=== PATIENT | female | born 1985 | race African-American/Black ===

== ENCOUNTER 2019-05-22 15:50 | Emergency (ER) | payer MEDICAID ==
[~2019-05-22] VITALS: Ht 170.2 cm; Wt 60.0 kg
[2019-05-22] MEDS ORDERED: ACETAMINOPHEN WITH CODEINE 300/30MG TABLET PO ONE (18:45)
[2019-05-22] MEDS ORDERED: IBUPROFEN 400MG TABLET PO ONE (18:45)
[2019-05-22] MEDS ORDERED: ACETAMINOPHEN WITH CODEINE 300/30MG TABLET PO NR (19:30)
[2019-05-22] MEDS ORDERED: IBUPROFEN 400MG TABLET PO NR (19:30)
[2019-05-22 20:04] VITALS: BP 124/84
== END 2019-05-22 20:05 | disposition home or self-care (01) ==
LOC: ER 15:50
DX: K08.89 Other specified disorders of teeth and supporting structures (principal); Z98.818 Other dental procedure status; R03.0 Elevated blood-pressure reading, without diagnosis of hypertension
CPT/HCPCS: 99283

== ENCOUNTER 2024-04-15 17:38 | Inpatient (IN) | payer OTHER ==
[~2024-04-15] VITALS: Ht 165.1 cm; Wt 77.1 kg
[2024-04-15 17:41] VITALS: O2SAT 97
[2024-04-15 18:52] LABS: BASOPHILS % 0.5 % (0.0-2.0); HEMOGLOBIN. 16.7 g/dL (12.0-16.0); LYMPHOCYTES % 13.7 % (20.0-50.0); MEAN CORPUSCULAR HEMOGLOBIN 29.5 pg (28.0-32.0); MEAN CORPUSCULAR HGB CONC 32.2 g/dL (31.0-37.0); MEAN CORPUSCULAR VOLUME 91.7 fL (81.0-99.0); MEAN PLATELET VOLUME 8.9 fl (7.4-10.4); MONOCYTES % 2.6 % (2.0-8.0); NEUTROPHILS % 83.2 % (40.0-76.0); PLATELET 234 x1000/uL (130-400); RED BLOOD CELL COUNT 5.67 mill/uL (4.2-5.4); RED CELL DISTRIBUTION WIDTH 15.9 % (11.6-14.6); WHITE BLOOD COUNT 10.8 x1000/uL (4.5-11.0)
[2024-04-15] MEDS ORDERED: FOLIC ACID 1 MG, THIAMINE HCL 100 MG, MVI, ADULT NO.1 10 ML in DEXTROSE 5% WATER 1,000 ML IV ONE (19:00)
[2024-04-15 19:05] LABS: HCG SCREEN NEGATIVE
[2024-04-15 20:03] LABS: CHLORIDE 119 mEq/L (98-107); POTASSIUM 3.6 mEq/L (3.5-5.1); SODIUM 145 mEq/L (136-145)
[2024-04-15 20:04] LABS: CARBON DIOXIDE 13 mEq/L (21-32)
[2024-04-15] MEDS: LORAZEPAM 2MG/ML INJ IV ONE (20:06)
[2024-04-15] MEDS: SODIUM CHLORIDE 0.9% 1,000 ML IV ONE (20:06)
[2024-04-15 20:09] LABS: CREATININE 0.6 mg/dL (0.6-1.0); UREA NITROGEN BLOOD 9 mg/dL (9-23)
[2024-04-15 20:10] LABS: D-DIMER 2.71 mg/L FEU (<0.50); INR 1.1; PARTIAL THROMBOPLASTIN TIME 24.5 sec (23.4-31.0); PROTHROMBIN TIME 12.4 sec (9.6-11.0); TROPONIN I HIGH SENSITIVITY 28 ng/L (3.0-34)
[2024-04-15 20:24] LABS: CALCIUM 5.9 mg/dL (8.7-10.4); GLUCOSE 44 mg/dL (70-105)
[2024-04-15] MEDS: DEXTROSE 50% WATER 50ML SYRINGE IV ONE (20:55)
[2024-04-15] MEDS: CALCIUM GLUCONATE 1GM PREMIX 50 ML IV ONE (20:57)
[2024-04-15] MEDS ORDERED: DOCUSATE SODIUM 100MG CAPSULE PO PRN (21:15)
[2024-04-15] MEDS ORDERED: IPRATROPIUM/ALBUTEROL 0.5-3(2.5)MG/3ML NEB HHN PRN (21:15)
[2024-04-15] MEDS ORDERED: ACETAMINOPHEN 325MG TABLET PO PRN (21:15)
[2024-04-15] MEDS ORDERED: GUAIFENESIN 200MG/10ML SUGAR FREE UDC PO PRN (21:15)
[2024-04-15] MEDS ORDERED: ONDANSETRON HCL 4MG/2ML INJ IV PRN (21:15)
[2024-04-15] MEDS ORDERED: MAGNESIUM/ALUMINUM HYDROXIDE/SIMETHICONE 30ML UDC PO PRN (21:15)
[2024-04-15] MEDS ORDERED: DEXTROSE 50% WATER 50ML SYRINGE IV PRN (21:15)
[2024-04-15] MEDS: FOLIC ACID 1 MG, THIAMINE HCL 100 MG, MVI, ADULT NO.1 10 ML in DEXTROSE 5% WATER 1,000 ML IV ONE (21:22)
[2024-04-15] MEDS: DEXTROSE 50% WATER 50ML SYRINGE IV NR (21:26)
[2024-04-15 22:45] LABS: ETHANOL BLOOD 49 mg/dL (<10)
[2024-04-15 22:46] LABS: ALANINE AMINOTRANSFERASE 42 IU/L (10-49); ALBUMIN 4.2 g/dL (3.2-4.8); ASPARTATE AMINOTRANSFERASE 44 IU/L (<34); BILIRUBIN DIRECT 0.9 mg/dL (<=3.0)
[2024-04-15 22:47] LABS: BILIRUBIN TOTAL 2.6 mg/dL (0.1-1.0); PHOSPHORUS 5.5 mg/dL (2.5-4.9); PROTEIN TOTAL 7.5 g/dL (6.0-8.3)
[2024-04-15 23:01] LABS: TROPONIN I HIGH SENSITIVITY 63 ng/L (3.0-34)
[2024-04-15] MEDS ORDERED: IOHEXOL-350 100 ML BOTTLE ONE (23:37)
[2024-04-16] MEDS: LORAZEPAM 2MG/ML INJ IV PRN (01:01)
[2024-04-16 05:12] LABS: CLARITY URINE CLEAR (CLEAR); COLOR URINE YELLOW (YELLOW); GLUCOSE URINE NEGATIVE (NEGATIVE); KETONES URINE NEGATIVE (NEGATIVE); LEUKOCYTE ESTERASE URINE NEGATIVE (NEGATIVE); NITRITE URINE NEGATIVE (NEGATIVE); OCCULT BLOOD URINE 1+ (NEGATIVE); PH URINE 5.5 (4.5-8.0); PROTEIN URINE 3+ (NEGATIVE); SPECIFIC GRAVITY URINE 1.054 (1.005-1.030); UROBILINOGEN URINE 0.2 E.U./dL (0.2-1.0)
[2024-04-16] MEDS: CLONIDINE 0.1MG TABLET PO PRN (05:27)
[2024-04-16] MEDS: LORAZEPAM 2MG/ML INJ IV NR (05:33)
[2024-04-16] MEDS: MAGNESIUM 2 G PREMIX 50 ML IV NR (05:38)
[2024-04-16 05:41] LABS: *AMPHETAMINES SCREEN URINE PRESUMPTIVE POSITIVE (NEGATIVE); *BARBITURATES SCREEN URINE NEGATIVE (NEGATIVE); *BENZODIAZEPINES SCREEN URINE PRESUMPTIVE POSITIVE (NEGATIVE); *COCAINE SCREEN URINE NEGATIVE (NEGATIVE); CANNABINOID URINE SCREEN NEGATIVE (NEGATIVE); ECSTASY MDMA SCREEN URINE CONF.TEST INDICATED (NEGATIVE); METHADONE URINE SCREEN NEGATIVE (NEGATIVE); OPIATES URINE SCREEN NEGATIVE (NEGATIVE); PHENCYCLIDINE URINE SCREEN NEGATIVE (NEGATIVE)
[2024-04-16 06:35] LABS: CHLORIDE 104 mEq/L (98-107); POTASSIUM 4.3 mEq/L (3.5-5.1)
[2024-04-16 06:36] LABS: CALCIUM 9.9 mg/dL (8.7-10.4); CARBON DIOXIDE 21 mEq/L (21-32)
[2024-04-16 06:41] LABS: GLUCOSE 111 mg/dL (70-105); TRIGLYCERIDE 149 mg/dL (0-150); UREA NITROGEN BLOOD 12 mg/dL (9-23)
[2024-04-16 06:42] LABS: LDL CHOLESTEROL 172 mg/dL (5-100)
[2024-04-16 06:43] LABS: CHOLESTEROL 212 mg/dL (<200); HDL CHOLESTEROL 27 mg/dL (>65)
[2024-04-16 06:45] LABS: T4 FREE 1.48 ng/dL (0.89-1.76)
[2024-04-16 06:49] LABS: SODIUM 135 mEq/L (136-145)
[2024-04-16 06:57] LABS: BASOPHILS % 0.5 % (0.0-2.0); EOSINOPHILS % 0.3 % (0.0-5.0); HEMOGLOBIN. 16.2 g/dL (12.0-16.0); LYMPHOCYTES % 34.9 % (20.0-50.0); MEAN CORPUSCULAR HEMOGLOBIN 29.4 pg (28.0-32.0); MEAN CORPUSCULAR HGB CONC 32.4 g/dL (31.0-37.0); MEAN CORPUSCULAR VOLUME 90.8 fL (81.0-99.0); MONOCYTES % 5.4 % (2.0-8.0); NEUTROPHILS % 58.9 % (40.0-76.0); PLATELET 200 x1000/uL (130-400); RED BLOOD CELL COUNT 5.51 mill/uL (4.2-5.4); RED CELL DISTRIBUTION WIDTH 15.6 % (11.6-14.6); WHITE BLOOD COUNT 8.7 x1000/uL (4.5-11.0)
[2024-04-16 07:13] LABS: SQUAMOUS EPITHELIAL CELL URINE 2+ /lpf (RARE/1+)
[2024-04-16 07:15] LABS: RBC URINE 0-2 /hpf (0-2)
[2024-04-16 07:17] LABS: BACTERIA URINE NONE SEEN
[2024-04-16] MEDS: HYDRALAZINE HCL 50MG TABLET PO SCH (07:30)
[2024-04-16] MEDS: ENOXAPARIN 40MG/0.4ML SYR SUBCUT SCH (09:25)
[2024-04-16] MEDS: FOLIC ACID 1MG TABLET PO SCH (09:26)
[2024-04-16] MEDS: PANTOPRAZOLE SODIUM 40 MG/VIAL IV SCH (09:26)
[2024-04-16] MEDS: THIAMINE HCL 100MG TABLET PO SCH (09:26)
[2024-04-16 14:33] LABS: IRON 348 ug/dL (50-170)
[2024-04-16 14:35] LABS: TOTAL IRON BINDING CAPACITY 374 ug/dl (250-425)
[2024-04-16 16:00] VITALS: BP 139/106; PULSE 118; RESP 18; TEMP 36.50292; O2SAT 97
[2024-04-16 17:09] LABS: TROPONIN I HIGH SENSITIVITY 40 ng/L (3.0-34)
[2024-04-16 20:00] VITALS: BP 143/62; PULSE 80; RESP 18; TEMP 36.22512; O2SAT 96
[2024-04-16 20:24] VITALS: BP 143/62; PULSE 80; RESP 20; TEMP 36.2512
[2024-04-17] VITALS: BP 125/88; PULSE 80; RESP 18; TEMP 36.6696; O2SAT 99
[2024-04-17 01:23] LABS: TROPONIN I HIGH SENSITIVITY 30 ng/L (3.0-34)
[2024-04-17 04:00] VITALS: BP 131/92; PULSE 120; RESP 19; TEMP 36.3918; O2SAT 99
[2024-04-17 08:10] VITALS: BP 106/70; PULSE 138; TEMP 36.44736
[2024-04-17] MEDS ORDERED: FERROUS SULFATE 325MG TABLET PO SCH (12:40)
== END 2024-04-17 12:21 | disposition left against medical advice (07) | DRG 812 ==
LOC: ER 17:38 → 5WST 20:31 → EDBEDREQ 20:32 → EDBEDREQTM 20:32 → 8WST 04-16 16:57
PROVIDERS: ADMIT Internal Medicine; ATTEND Internal Medicine
DX: T43.621A Poisoning by amphetamines, accidental (unintentional), initial encounter (principal); I11.0 Hypertensive heart disease with heart failure; E83.51 Hypocalcemia; I50.9 Heart failure, unspecified; I73.9 Peripheral vascular disease, unspecified; E16.2 Hypoglycemia, unspecified; E78.5 Hyperlipidemia, unspecified; R73.9 Hyperglycemia, unspecified; F32.A Depression, unspecified; F17.210 Nicotine dependence, cigarettes, uncomplicated; F41.1 Generalized anxiety disorder; J44.89 Other specified chronic obstructive pulmonary disease; J98.4 Other disorders of lung; Z53.29 Procedure and treatment not carried out because of patient's decision for other reasons; F10.129 Alcohol abuse with intoxication, unspecified; Y90.9 Presence of alcohol in blood, level not specified; E80.4 Gilbert syndrome
CPT/HCPCS: 36415; 71045; 71275; 80048; 80061; 80076; 80305; 80320; 81003; 82330; 82728; 83036; 83540; 83550; 83735; 83880; 84100; 84439; 84443; 84484; 84703; 85025; 85379; 93005; 93306; 93923; 93970; 99291; J0610; J1650; J2060; J2470; J3411; J3475; J3490; J7030; J7070; Q9967; G0480

== ENCOUNTER 2024-05-22 20:00 | Emergency (ER) | payer MEDICAID, OTHER ==
[~2024-05-22] VITALS: Ht 165.1 cm; Wt 90.0 kg
[2024-05-22 20:18] VITALS: BP 134/101; PULSE 113; RESP 18; TEMP 98.5; O2SAT 95
[2024-05-22 21:20] LABS: HEMATOCRIT 48.7 % (36.0-48.0); MEAN CORPUSCULAR HEMOGLOBIN 29.1 pg (28.0-32.0); MEAN CORPUSCULAR HGB CONC 32.8 g/dL (31.0-37.0); MEAN CORPUSCULAR VOLUME 88.6 fL (81.0-99.0); PLATELET 115 x1000/uL (130-400); RED CELL DISTRIBUTION WIDTH 17.5 % (11.6-14.6); WHITE BLOOD COUNT 6.5 x1000/uL (4.5-11.0)
[2024-05-22 21:30] LABS: CHLORIDE 105 mEq/L (98-107); POTASSIUM 3.7 mEq/L (3.5-5.1); SODIUM 139 mEq/L (136-145)
[2024-05-22 21:31] LABS: CARBON DIOXIDE 18 mEq/L (21-32)
[2024-05-22 21:32] LABS: CALCIUM 9.2 mg/dL (8.7-10.4)
[2024-05-22 21:36] LABS: CREATININE 0.8 mg/dL (0.6-1.0); GLUCOSE 79 mg/dL (70-105); UREA NITROGEN BLOOD 13 mg/dL (9-23)
[2024-05-22 21:37] LABS: TROPONIN I HIGH SENSITIVITY 8 ng/L (3.0-34)
== END 2024-05-22 22:48 | disposition home or self-care (01) ==
LOC: ER 20:00
DX: R00.2 Palpitations (principal); R07.9 Chest pain, unspecified; I11.0 Hypertensive heart disease with heart failure; I50.9 Heart failure, unspecified
CPT/HCPCS: 36415; 71045; 80048; 84484; 85027; 93005; 99285